=== PATIENT | female | born 1980 | race Caucasian/White ===

== ENCOUNTER 2016-08-10 18:09 | Inpatient (IN) | payer OTHER ==
[~2016-08-10] VITALS: Ht 152.4 cm; Wt 76.9 kg
[2016-08-10 18:39] VITALS: Ht 152.4 cm; Wt 76.9 kg
[2016-08-10] MEDS ORDERED: NPH,100I5 SQ ×2 (18:49→18:51)
[2016-08-10] MEDS ORDERED: SS SC (18:49)
[2016-08-10] MEDS ORDERED: PRENAT PO (18:51)
[2016-08-10] MEDS ORDERED: NOVO7030 SC (18:51)
[2016-08-10] MEDS ORDERED: INSULIN REGULAR, HUMAN 100 UNIT/1 ML 3ML VIAL SC SCH (19:00)
--- NOTE | 2016-08-10 20:09 | RADRPT ---
PROCEDURE: US biophysical profile. CLINICAL INDICATION: Decreased motion. TECHNIQUE: Multiple sonographic images of the uterus were obtained. The images were revi ewed on a PACS workstation. COMPARISON: No prior studies are available for comparison. FINDINGS: There is a single live intrauterine gestation. heart rate is 131 beats per minute. The position is cephalic. The placenta is posterior grade II with no abruption or previa. The MATT is 22.8 cm. (Normal = 5-20 cm.) Breathing Movement: 2 Gross Body Movement: 2 Tone: 2 Qualitative Amniotic Fluid Volume: 2 TOTAL: 8 IMPRESSION: 1. The biophysical score is 8/8. 2. Polyhydramnios with amniotic fluid index measuring 22.8 cm. RPTAT: QQ .Rajeev Verde MD, Date Time Electronically viewed and signed by .Rajeev Verde MD, on 08/10/2016 20:09 .R/
[2016-08-10] MEDS ORDERED: LACTATED RINGER'S 1,000 ML IV SCH ×2 (20:32→21:15)
[2016-08-10] MEDS ORDERED: NPH, HUMAN INSULIN ISOPHANE 3ML VIAL SC SCH (21:00)
[2016-08-10] MEDS ORDERED: CARBOPROST 250 MCG INJ IM PRN (21:30)
[2016-08-10] MEDS ORDERED: OXYTOCIN 30 UNITS/LR 500 ML IV PRN (21:30)
[2016-08-10] MEDS ORDERED: METHYLERGONOVINE 0.2 MG INJ IM PRN (21:30)
[2016-08-10] MEDS ORDERED: CEFAZOLIN 2 GM/50 ML (PMX) 50 ML IV SCH (21:30)
[2016-08-10] MEDS ORDERED: MISOPROSTOL 200 MCG TAB PR PRN (21:30)
[2016-08-10] MEDS ORDERED: OXYTOCIN 30 UNITS/LR 500 ML IV SCH (21:30)
[2016-08-10 21:57] LABS: ADD SCAN DIFF NO
[2016-08-10 22:00] LABS: BASOPHILS % 0.4 % (0.0-2.0); EOSINOPHILS # 0.1 10^3/ul (0.0-0.5); EOSINOPHILS % 0.8 % (0.0-7.0); HEMATOCRIT 36.8 % (37.0-47.0); HEMOGLOBIN 12.6 g/dl (12.0-16.0); LYMPHOCYTES # 1.7 10^3/ul (0.8-2.9); LYMPHOCYTES % 18.5 % (15.0-51.0); MEAN CORPUSCULAR HEMOGLOBIN 31.1 pg (29.0-33.0); MEAN CORPUSCULAR HGB CONC 34.2 g/dl (32.0-37.0); MEAN CORPUSCULAR VOLUME 90.9 fl (82.0-101.0); MEAN PLATELET VOLUME 11.7 fl (7.4-10.4); MONOCYTE # 0.4 10^3/ul (0.3-0.9); MONOCYTES % 4.5 % (0.0-11.0); NEUTROPHIL # 6.8 10^3/ul (1.6-7.5); PLATELET COUNT 166 10^3/UL (140-415); RED BLOOD COUNT 4.05 10^6/ul (4.20-5.40); RED CELL DISTRIBUTION WIDTH 13.7 % (11.5-14.5); WHITE BLOOD COUNT 9.1 10^3/ul (4.8-10.8)
[2016-08-10 22:12] LABS: INR 0.98
[2016-08-10 22:13] LABS: PARTIAL THROMBOPLASTIN TIME 25.7 Sec (25.0-35.0)
[2016-08-10 22:33] LABS: ALBUMIN 3.5 g/dl (3.3-4.9); CHLORIDE 103 mmol/L (97-110); SODIUM 139 mmol/L (135-144)
[2016-08-10 22:34] LABS: POTASSIUM 3.9 mmol/L (3.5-5.1)
[2016-08-10 22:36] LABS: ALANINE AMINOTRANSFERASE 22 IU/L (13-69); ALBUMIN/GLOBULIN RATIO 1.12; ALKALINE PHOSPHATASE 106 IU/L (42-121); ANION GAP 19 (8-16); ASPARTATE AMINO TRANSFERASE 27 IU/L (15-46); BILIRUBIN,INDIRECT 0.4 mg/dl (0-1.1); BILIRUBIN,TOTAL 0.4 mg/dl (0.2-1.3); BLOOD UREA NITROGEN 12 mg/dl (7-20); CARBON DIOXIDE 21 mmol/L (21-31); CREATININE 0.52 mg/dl (0.44-1.00); GLUCOSE 104 mg/dl (70-220); TOTAL PROTEIN 6.6 g/dl (6.1-8.1)
[2016-08-10 22:37] LABS: CALCIUM 9.5 mg/dl (8.4-10.2)
--- NOTE | 2016-08-10 23:01 | TRIAGE ---
OB Triage Datetime Report Generated by CPN: 08/10/2016 23:00 Datetime: 08/10/2016 22:00 Stage of : OB Triage Labor Evaluation Frequency: IRREGULAR Monitor Mode: External Duration (sec)2399: 60 Quality: Mild Pattern: Normal: <= 5 Contractions in 10 Minutes Resting Tone [place]: Relaxed Heart Rate FHR Baseline Rate: 145 Monitor Mode: External US FHR Baseline Changes: No Baseline Change Variability: Moderate 6-25 bpm Accelerations: 15X15 Decelerations: None Category: Category I Datetime: 08/10/2016 21:24 Vaginal Exam Membrane Status: Intact Datetime: 08/10/2016 21:00 Labor Evaluation Frequency: 1-4 Monitor Mode: External Duration (sec)2399: 60-120 Quality: Mild Pattern: Normal: <= 5 Contractions in 10 Minutes Resting Tone [place]: Relaxed Heart Rate FHR Baseline Rate: 135 Monitor Mode: External US FHR Baseline Changes: No Baseline Change Variability: Moderate 6-25 bpm Accelerations: 15X15 Decelerations: None Category: Category I Datetime: 08/10/2016 20:25 Stage of : OB Triage Datetime: 08/10/2016 20:00 Labor Evaluation Frequency: 2-3 Monitor Mode: External Duration (sec)2399: 50-120 Quality: Mild Pattern: Normal: <= 5 Contractions in 10 Minutes Resting Tone [place]: Relaxed Heart Rate FHR Baseline Rate: 125 Monitor Mode: External US FHR Baseline Changes: No Baseline Change Variability: Moderate 6-25 bpm Accelerations: 10X10 Decelerations: None Category: Category II Datetime: 08/10/2016 19:20 Bedside Blood Glucose: 96 Datetime: 08/10/2016 19:17 Assessment Type: Triage Maternal Assessment Level of Consciousness: Fully Conscious DTR's/Clonus: DTRs 2+; No Clonus Headache: Denies Blurred Vision: No Respiratory Effort: Unlabored; Regular Rhythm; Equal Expansion Breath Sounds, Left: Clear and Equal Breath Sounds, Right: Clear and Equal Nausea/Vomiting: Denies RUQ Epigastric Pain: Denies Facial Edema: None Fall Risk Assessment History of Falling: (0) No Secondary Diagnosis: (0) No Ambulatory Aid: (0) Bedrest/Nurse Assist IV Therapy: (0) No Gait: (0) Normal/Bedrest/Immobile Mental Status: (0) Oriented to Own Ability Fall Score: 0 Fall Risk Score Definition: No Risk: No action required Datetime: 08/10/2016 18:41 Stage of : OB Triage Datetime: 08/10/2016 18:32 Stage of : OB Triage Assessment Type: Triage EGA: 35.6 Maternal Assessment Level of Consciousness: Fully Conscious DTR's/Clonus: DTRs 2+; No Clonus Headache: Denies Blurred Vision: No Respiratory Effort: Unlabored; Regular Rhythm; Equal Expansion Breath Sounds, Left: Clear and Equal Breath Sounds, Right: Clear and Equal Nausea/Vomiting: Denies RUQ Epigastric Pain: Denies Facial Edema: None Temperature Route: Axillary Fall Risk Assessment History of Falling: (0) No Secondary Diagnosis: (0) No Ambulatory Aid: (0) Bedrest/Nurse Assist IV Therapy: (0) No Gait: (0) Normal/Bedrest/Immobile Mental Status: (0) Oriented to Own Ability Fall Score: 0 Fall Risk Score Definition: No Risk: No action required Labor Evaluation Frequency: 0 Monitor Mode: External Resting Tone [place]: Relaxed Heart Rate FHR Baseline Rate: 135 Monitor Mode: External US Variability: Moderate 6-25 bpm Decelerations: None Category: Category I Pain Assessment Pain Scale: 0 Pain Presence: None/Denies Pain Type: N/A Pain Goal: 3 Pain Relief Measures: Comfort Measures Datetime: 08/10/2016 18:22 Time of Arrival: 08/10/2016 18:07 Arrived By: Ambulatory Arrived From: Dr. Grove Chief Complaint: SENT FROM PERINATOLOGY IN [facility] PROLONGED DECEL LASTING 3 MIN. SENT FOR PROLONGED MONITORING Movement: Present Contractions: Denies/Absent Rupture of Membranes: Denies Vaginal Bleeding: None Vaginal Discharge: Denies Recent Sexual Intercouse: Denies Abdominal Trauma: Not Applicable Patient Complaints: None Time Provider Notified: 08/10/2016 18:15 Provider Notified: LEONARD Initial Plan: MONITOR,
--- NOTE | 2016-08-10 23:07 | TRIAGE ---
OB Triage Datetime Report Generated by CPN: 08/10/2016 23:06 Datetime: 08/10/2016 20:34 Stage of : OB Triage Datetime: 08/10/2016 18:22 Additional Patient Complaints: PT DIABETIC BEFORE PREGNACY DIET CONTRAOLLED PT ON INSULIN WHILE NE ESGNANT
--- NOTE | 2016-08-10 23:16 | TRIAGE ---
OB Triage Datetime Report Generated by CPN: 08/10/2016 23:15 Datetime: 08/10/2016 23:00 Frequency: IRREGULAR Monitor Mode: External Duration (sec)2399: 60 Quality: Mild Pattern: Normal: <= 5 Contractions in 10 Minutes Resting Tone [place]: Relaxed Interventions: Side to Side FHR Baseline Rate: 145 Monitor Mode: External US FHR Baseline Changes: No Baseline Change Variability: Moderate 6-25 bpm Accelerations: 15X15 Decelerations: Early (Annotations: DOWN TO 120 FROM 145 AND RIGHT BACK UP) Category: Category I
[2016-08-11 00:54] LABS: ADD UMIC YES; URINE BILIRUBIN (Dip) NEGATIVE (NEGATIVE); URINE BLOOD (Dip) TRACE (NEGATIVE); URINE COLOR LT. YELLOW (YELLOW); URINE GLUCOSE (Dip) NEGATIVE (NEGATIVE); URINE KETONES (Dip) TRACE (NEGATIVE); URINE LEUKOCYTE ESTERASE (Dip) 1+ (NEGATIVE); URINE NITRITE (Dip) NEGATIVE (NEGATIVE); URINE TOTAL PROTEIN (Dip) NEGATIVE (NEGATIVE); URINE UROBILINOGEN (Dip) 0.2 E.U./dL (0.1-1.0)
--- NOTE | 2016-08-11 01:21 | HP ---
Date/Time of Note Date/Time of Note DATE: 08/11/16 TIME: 01:08 OB - History Hx of Present Free Text/Dictation 35 Year-old with DM on insulin, polyhydramnios and SIUP at 35 6/[address] Archer office for prolonged deceleration during today's NST. She states good movement. She denies nausea, vomiting, shortness of breath, chest pain, and abdominal pain between contractions, headache, visual changes, vaginal bleeding or LOF. Last Menstrual Period: Dec 03, 2015 Estimated Due Date: Sep 08, 2016 : 2 Para: 1 Spontaneous : 0 Therapeutic : 0 Care: Good Care Ultrasounds: Normal mid trimester US Obstetrical Complications: Other (DM on insulin, polyhydramnios) Past Family/Social History * Past Medical, Surgical, Family and Obstetric Histories reviewed from chart. Blood Type: O+ Rubella: immune RPR/VDRL: Negative GBS Status: Unknown HBsAG: Negative OB Admission Exam Physical Exam HEENT: WNL Heart: Rhythm Normal Lungs: Clear Abdomen: WNL Extremities: Normal Reflexes: Normal Membranes: Intact Heart Rate: 120's Accelerations: No Accelerations Decelerations: No Decelerations Varibility: Minimum Contractions on Admission: 6-10 Minutes Apart Intensity: Mild Last 72 hourBlood Glucose Bedside Glucose - 72 Hours Test 08/10/16 19:20 08/10/16 22:55 08/11/16 00:32 Bedside Glucose 96mg/dL (70-220) 127mg/dL (70-220) 104mg/dL (70-220) Last 72 hours Lab Results CBC & BMP 08/10/16 21:13 Liver Function Test 08/10/16 21:13 Alanine Aminotransferase (ALT/SGPT) 22 Albumin 3.5 Alkaline Phosphatase 106 Aspartate Amino Transf (AST/SGOT) 27 Direct Bilirubin 0.00 Total Protein 6.6 OB Assessment/Plan Other plan: 35 Year-old with DM on insulin, polyhydramnios and SIUP at 35 6/7 weeks with prolonged deceleration during today's NST referred for further evaluation. Initially in triage she had minimal variability with no acceleration. She was admitted for close observation. She has BPP of 8/8, however due to polyhydramnios is difficult tp precisely interpret the AF in BPP. - FHR: Category II - Continious EFM, toco - CBC, blood type and screen - NPO from Midnight - Check FBG every 4 hrs - Continue same dose of insulin - Please see the orders - Reevaluate tomorrow morning - Follow by her primary Ob- dr. Archer Admission, procedures, expectations, risks and possible complications have been discussed in detail with the patient. She expressed understanding. All questions answered Addendum: After receiving IVF, FHR: Category II, follow closely until am BLOSSOM FISCHER Aug 11, 2016 01:18
[2016-08-11 02:05] LABS: BACTERIA,URINE MODERATE; SQUAMOUS EPITHELIAL CELL,UR MODERATE; URINE RBCS 0-2 /HPF (0)
[2016-08-11] MEDS ORDERED: LACTATED RINGER'S 1,000 ML IV SCH ×2 (04:00→21:55)
[2016-08-11] MEDS ORDERED: GLUCOSE GEL 15 GRAM TUBE PO PRN ×2 (07:00)
[2016-08-11] MEDS ORDERED: GLUCOSE GEL 15 GRAM TUBE BUCCAL PRN (07:00)
[2016-08-11] MEDS ORDERED: DEXTROSE 50% 50 ML SYRINGE IV PRN ×2 (07:00)
[2016-08-11] MEDS ORDERED: GLUCAGON 1 MG INJ IM PRN (07:00)
[2016-08-11] MEDS ORDERED: NPH, HUMAN INSULIN ISOPHANE 3ML VIAL SC SCH (07:05)
[2016-08-11] MEDS ORDERED: INSULIN REGULAR, HUMAN 100 UNIT/1 ML 3ML VIAL SC SCH ×2 (07:05→17:05)
[2016-08-11] MEDS ORDERED: morphine SULFATE/PF (10 MG/10 ML) INJ ONE (11:24)
[2016-08-11] MEDS ORDERED: FENTAnyl 50 MCG/ML VIAL ONE (11:25)
[2016-08-11] MEDS ORDERED: PHENYLephrine (100 MCG/ML) 5ML SYG ONE (11:25)
[2016-08-11] MEDS ORDERED: CEFAZOLIN 2 GM/50 ML (PMX) 50 ML IV SCH (11:30)
[2016-08-11] MEDS ORDERED: ONDANSETRON 4 MG INJ ONE (11:49)
[2016-08-11] MEDS ORDERED: DEXAMETHASONE 4 MG/ML 1 ML INJ ONE (11:49)
[2016-08-11] MEDS ORDERED: ZOLPIDEM 5 MG TAB PO PRN (13:00)
[2016-08-11] MEDS ORDERED: KETOROLAC 30 MG INJ IV PRN (13:00)
[2016-08-11] MEDS ORDERED: HYDROmorphONE 1 MG/ML SYG IV PRN ×2 (13:00)
[2016-08-11] MEDS ORDERED: ONDANSETRON 4 MG INJ IV PRN (13:00)
[2016-08-11] MEDS ORDERED: DIPHENHYDRAMINE 50 MG INJ IV PRN (13:00)
[2016-08-11] MEDS ORDERED: NALOXONE (0.4 MG/ML) INJ IV PRN (13:00)
--- NOTE | 2016-08-11 13:53 | OPR ---
Operative Report Planned Procedure Free Text/Dictation 35 wks previous c/s with late declerations, for repeat c/s and btl Procedure date Aug 11, 2016 Performed by: AUSTYN VALLE MD Assisting provider: MITCH ALCANTAR MD Anesthesia Type: spinal Procedure Description Under satisfactory spinal anesthesia, the patient was prepped and draped and placed in a supine position, tilted to the left. Pfannenstiel incision was made , carried through the subcutaneous tissue. Bleeders brought under control with electrocautery. Fascia incised to the length of the incision. Rectus muscles from the fascia, divided midline. Peritoneum exposed, entered through a transverse incision. Exploration of abdomen revealed multiple adhesions of omentum and peritoneium to the lower uterine segments which were clamped and dissected out. This was done to create a bladder flap. Transverse incision was made in the lower segment of the uterus. Amniotic sac ruptured. [clear] amniotic fluid noted. [] Nasal oropharyngeal suction was performed. The baby was handed to the team for immediate attention. The placenta was delivered manually intact. Uterine cavity was cleaned with wet sponge and drainage established. Uterus closed in 2 layers using one monocryl suture in continuous fashion. Peritoneal cavity irrigated with warm saline. The right tube was previously removed by another surgery. The left tube was tied using o plain tie twice and cut with metazmbaum scissors. Sponge, needle and instrument count reported to be correct. Abdominal peritoneum closed with one monocryl suture continuously. Rectus muscle approximated with one monocryl suture[]. Fascia closed with [one monocryl suture ], and skin closed with yany. Estimated blood loss 700[]mL. Urine bag contained [300]mL of urine Post-Procedure Findings: Live Baby [], Apgars [] and [], weight [], position [], [] presentation []cord. Complications: None Pt Condition post procedure: stable Disposition: PACU Physician Certification I, the undersigned physician, hereby certify that I have discussed the procedure described in this consent form with this patient (or the patient's legal promotions representative), including: * The risk and benefits of the procedure; * Any adverse reactions that may reasonably be expected to occur; * Any alternative efficacious methods of treatment which may be medically viable ; * The potential problems that may occur during recuperation; * Potential for blood transfusion and associated risks/benefits; and * Any research or economic interest I may have regarding this treatment. I further certify that the patient/legally responsible person was encouraged to ask question and that all questions were answered. AUSTYN VALLE MD Aug 11, 2016 13:53
--- NOTE | 2016-08-11 14:44 | DELSUM ---
Delivery Summary A-C Datetime Report Generated by CPN: 08/11/2016 14:44 DELIVERY PERSONNEL Steeler: Ghukasyan, Sue MATERNAL INFORMATION Delivery Anesthesia: Spinal Medications in Delivery: SEE ANESTHESIA RECORD Estimated Blood Loss (ml): 800 Placenta Cultured: No Maternal Complications: None LABOR SUMMARY EDC: 09/08/2016 00:00 No. Babies in Womb: 1 Attempted: No Labor Anesthesia: None LABOR INFORMATION Reason for Induction: Not Applicable Oxytocin: N/A Group B Beta Strep: Negative Group B Beta Strep: Positive Antibiotics # of Doses: 1 Antibiotics Time of Last Dose: 08/11/2016 11:50 Steroids Given: None Reason Steroids Not Administered: Not Applicable MEMBRANES Membranes Rupture Method: Artificial Rupture of Membranes: 08/11/2016 11:58 Length of Rupture (hr): 0.02 Amniotic Fluid Color: Bloody Amniotic Fluid Amount: Large Amniotic Fluid Odor: Normal STAGES OF LABOR Stage 3 hr: 0 Stage 3 min: 1 CSECTION DELIVERY Primary Indication: Repeat Elective Secondary Indication: Nonreassuring Stat CSection Urgency: Elective CSection Incidence: Repeat Labor: No Labor Elective: Elective CSection Incision: Lower Uterine Transverse Sterilization Procedure: Scarlet BABY A INFORMATION Delivery Date/Time: 08/11/2016 11:59 Method of Delivery: Born in Route : No : N/A Forceps: N/A Vacuum Extraction: N/A Shoulder Dystocia : N/A SHOULDER DYSTOCIA BABY A Delivery Date/Time: 08/11/2016 11:59 PRESENTATION/POSITION BABY A Presentation: Cephalic Cephalic Presentation: Vertex Vertex Position: Left Occipital Anterior Breech Presentation: N/A PLACENTA INFORMATION BABY A Placenta Delivery Time : 08/11/2016 12:00 Placenta Method of Delivery: Manual Removal Placenta Status: Delivered SCORES BABY A Heart Rate 1 min: >100 bpm Resp Effort 1 min: Good Cry Reflex Irritability 1 min: Cough/Sneeze/Pulls Away Muscle Tone 1 min: Some Flexion of Extrem Color 1 min: Body [place], Extremit Blue SCORE 1 MIN: 8 Heart Rate 5 min: >100 bpm Resp Effort 5 min: Good Cry Reflex Irritability 5 min: Cough/Sneeze/Pulls Away Muscle Tone 5 min: Active Motion Color 5 min: Body [place], Extremit Blue SCORE 5 MIN: 9 INFANT INFORMATION BABY A Gestational Age at Delivery: 36.0 Gestational Status: Late - 34- 36.6 Weeks Infant Outcome : Liveborn Infant Condition : Stable Sex: Female IDENTIFICATION/MEDS BABY A ID Band Number: [id number] ID Band Location: Right Leg; Left Arm Sensor Applied: Yes Sensor Number: [id number] Sensor Location : Cord Clamp Vitamin K Given : Not Given Erythromycin Given: Not Given WEIGHT/LENGTH BABY A Birthweight (gm): 2775 Weight (lb): 6 Weight (oz): 2 Length (in): 18.00 Length (cm): 45.72 CORD INFORMATION BABY A No. Cord Vessels: 3 Nuchal Cord : N/A Cord Blood Taken: Yes Suction: Mouth; Nose ASSESSMENT BABY A Complications: Other Physical Findings at Delivery: Within Normal Limits Respirations: Appears Normal Reproduction Technician/ALS Called : No Care By: Chon PARRA Transferred To: Remains with Mother
[2016-08-11 15:45] VITALS: BP 123/63; PULSE 63; RESP 17
[2016-08-11] MEDS: LACTATED RINGER'S 1,000 ML IV SCH ×2 (16:08→22:50)
[2016-08-11] MEDS ORDERED: MISOPROSTOL 200 MCG TAB PR PRN (16:30)
[2016-08-11] MEDS ORDERED: NA PHOSPHATE/BIPHOS 133 ML ENEMA PR PRN (16:30)
[2016-08-11] MEDS ORDERED: NACL 0.9% 3 ML SYG IV SCH (16:30)
[2016-08-11] MEDS ORDERED: METHYLERGONOVINE 0.2 MG INJ IM PRN (16:30)
[2016-08-11] MEDS ORDERED: LANOLIN 7 GM TUBE TOP PRN (16:30)
[2016-08-11] MEDS ORDERED: OXYTOCIN 30 UNITS/LR 500 ML IV PRN (16:30)
[2016-08-11] MEDS ORDERED: OXYCODONE/ACETAMINOPHEN (5/325) TAB PO PRN (16:30)
[2016-08-11] MEDS ORDERED: CARBOPROST 250 MCG INJ IM PRN (16:30)
[2016-08-11] MEDS ORDERED: ACETAMINOPHEN/CODEINE #3 TAB PO PRN (16:30)
[2016-08-11] MEDS: OXYTOCIN 30 UNITS/LR 500 ML IV SCH ×2 (16:33→19:02)
[2016-08-11 19:45] VITALS: BP 117/59; PULSE 68; RESP 20
[2016-08-11 23:30] VITALS: BP 102/58; PULSE 73; RESP 18
[2016-08-12 03:30] VITALS: BP 97/56; PULSE 71; RESP 19
[2016-08-12] MEDS: LACTATED RINGER'S 1,000 ML IV SCH (06:21)
[2016-08-12 08:00] VITALS: BP 101/55; PULSE 78; RESP 18
[2016-08-12 08:05] LABS: ADD SCAN DIFF NO
[2016-08-12 08:42] LABS: BASOPHILS % 0.2 % (0.0-2.0); EOSINOPHILS % 0.1 % (0.0-7.0); HEMATOCRIT 24.1 % (37.0-47.0); LYMPHOCYTES # 1.5 10^3/ul (0.8-2.9); LYMPHOCYTES % 15.7 % (15.0-51.0); MEAN CORPUSCULAR HEMOGLOBIN 30.5 pg (29.0-33.0); MEAN CORPUSCULAR HGB CONC 33.2 g/dl (32.0-37.0); MEAN PLATELET VOLUME 11.6 fl (7.4-10.4); MONOCYTE # 0.6 10^3/ul (0.3-0.9); MONOCYTES % 6.4 % (0.0-11.0); NEUTROPHIL # 7.5 10^3/ul (1.6-7.5); NEUTROPHILS % 77.2 % (39.0-77.0); PLATELET COUNT 108 10^3/UL (140-415); RED BLOOD COUNT 2.62 10^6/ul (4.20-5.40); RED CELL DISTRIBUTION WIDTH 13.8 % (11.5-14.5); WHITE BLOOD COUNT 9.8 10^3/ul (4.8-10.8)
--- NOTE | 2016-08-12 12:47 | PN ---
Date/Time of Note Date/Time of Note DATE: 08/12/16 TIME: 12:47 OB Subjective Subjective Subjective Patient reports pain well controlled with p.o. pain medication. She tolerated regular diet. Has not passed flatus yet. Baby is in NICU. Pumping. Vaginal bleeding decreased. OB Objective Objective Objective General appearance : Alert and oriented, patient is not in any acute distress. Abdomen: Soft, appropriate tenderness in the section incision. No drainage. Scant amount of old blood on the incision seen. Bowel sounds: Hypoactive Extremities: No calf tenderness, no click no edema Breast: No engorgement. No fissure and no evidence of mastitis Hematology - 72 Hrs Test 08/10/16 21:13 08/12/16 07:41 Basophils # 0.010^3/ul (0.0-0.1) 0.010^3/ul (0.0-0.1) Basophils % 0.4% (0.0-2.0) 0.2% (0.0-2.0) Eosinophils # 0.110^3/ul (0.0-0.5) 0.010^3/ul (0.0-0.5) Eosinophils % 0.8% (0.0-7.0) 0.1% (0.0-7.0) Hematocrit 36.8% (37.0-47.0) L 24.1% (37.0-47.0) #L Hemoglobin 12.6g/dl (12.0-16.0) 8.0g/dl (12.0-16.0) #L Lymphocytes # 1.710^3/ul (0.8-2.9) 1.510^3/ul (0.8-2.9) Lymphocytes % 18.5% (15.0-51.0) 15.7% (15.0-51.0) Mean Corpuscular Hemoglobin 31.1pg (29.0-33.0) 30.5pg (29.0-33.0) Mean Corpuscular Hemoglobin Concent 34.2g/dl (32.0-37.0) 33.2g/dl (32.0-37.0) Mean Corpuscular Volume 90.9fl (82.0-101.0) 92.0fl (82.0-101.0) Mean Platelet Volume 11.7fl (7.4-10.4) H 11.6fl (7.4-10.4) H Monocytes # 0.410^3/ul (0.3-0.9) 0.610^3/ul (0.3-0.9) Monocytes % 4.5% (0.0-11.0) 6.4% (0.0-11.0) Neutrophils # 6.810^3/ul (1.6-7.5) 7.510^3/ul (1.6-7.5) Neutrophils % 75.0% (39.0-77.0) 77.2% (39.0-77.0) H Nucleated Red Blood Cells # 0.010^3/ul (0.0-0.0) 0.010^3/ul (0.0-0.0) Nucleated Red Blood Cells % 0.0/100WBC (0.0-0.0) 0.0/100WBC (0.0-0.0) Platelet Count 06806^3/UL (140-415) 84472^3/UL (140-415) #L Red Blood Count 4.0510^6/ul (4.20-5.40) L 2.6210^6/ul (4.20-5.40) #L Red Cell Distribution Width 13.7% (11.5-14.5) 13.8% (11.5-14.5) White Blood Count 9.110^3/ul (4.8-10.8) 9.810^3/ul (4.8-10.8) Chemistry Test 08/10/16 19:20 08/10/16 21:13 08/10/16 22:55 08/11/16 00:32 Bedside Glucose 96mg/dL (70-220) 127mg/dL (70-220) 104mg/dL (70-220) Alanine Aminotransferase (ALT/SGPT) 22IU/L (13-69) Albumin 3.5g/dl (3.3-4.9) Albumin/Globulin Ratio 1.12 Alkaline Phosphatase 106IU/L (42-121) Anion Gap 19 (8-16) H Aspartate Amino Transf (AST/SGOT) 27IU/L (15-46) Blood Urea Nitrogen 12mg/dl (7-20) Calcium Level 9.5mg/dl (8.4-10.2) Carbon Dioxide Level 21mmol/L (21-31) Chloride Level 103mmol/L (97-110) Creatinine 0.52mg/dl (0.44-1.00) Direct Bilirubin 0.00mg/dl (0.00-0.20) Globulin 3.10g/dl (1.3-3.2) Glucose Level 104mg/dl (70-220) Indirect Bilirubin 0.4mg/dl (0-1.1) Potassium Level 3.9mmol/L (3.5-5.1) Sodium Level 139mmol/L (135-144) Total Bilirubin 0.4mg/dl (0.2-1.3) Total Protein 6.6g/dl (6.1-8.1) Test 08/11/16 04:25 08/11/16 08:18 08/11/16 14:22 08/11/16 21:12 Bedside Glucose 102mg/dL (70-220) 81mg/dL (70-220) 104mg/dL (70-220) 121mg/dL (70-220) Test 08/12/16 08:05 08/12/16 11:06 Bedside Glucose 87mg/dL (70-220) 91mg/dL (70-220) OB Assessment/Plan Other Assessment: Status post repeat section for bradycardia at 36 weeks. Baby currently in NICU due to low blood sugar Hypoactive bowel sounds No evidence of ileus Anemia, due to postop. Asymptomatic and stable. Iron twice daily after resumption of bowel function with a stool softener Doing well Patient with GDM A2, was on insulin during . Blood sugars post up within normal range. Has not been on medication prior to Plan: Expectant Management Other plan: Continue ambulation Continue routine postop care ARLET SWEENEY MD Aug 12, 2016 12:47
[2016-08-12] MEDS: IBUPROFEN 800 MG TAB PO SCH ×2 (14:00→22:00)
[2016-08-12 16:00] VITALS: BP 113/59; PULSE 82; RESP 18
[2016-08-12 20:10] VITALS: BP 116/59; RESP 20
[2016-08-13] MEDS: IBUPROFEN 800 MG TAB PO SCH ×3 (00:43→21:56)
[2016-08-13 04:25] VITALS: BP 91/52; RESP 18
[2016-08-13 08:10] VITALS: BP 103/56; PULSE 67; RESP 17
--- NOTE | 2016-08-13 10:56 | QN ---
Documentation Comment doing well vss abd soft icision c&d d/c home next am AUSTYN VALLE MD Aug 13, 2016 10:56
--- NOTE | 2016-08-13 10:57 | DS ---
Date/Time of Note Date/Time of Note DATE: 08/13/16 TIME: 10:56 Discharge Summary Admission/Discharge Info Admit Date/Time Aug 10, 2016 at 20:25 Discharge Date/Time Final Diagnosis term preg repeat c/s in labor Patient Condition: Stable Hospital Course unremarkable Home Meds Reported Medications Multivit/Min/Fol Ac/Iron/Pren* ( S*) 1 Tab Tab, 1 TAB PO DAILY, TAB 08/10/16 NPH, Human Insulin Isophane (Humulin N Kwikpen) 100 Unit/1 Ml Insuln.pen, 1 UNIT SQ, EA 08/10/16 Insulin Isophan/Regular (Humulin 70/30) 100 Units/Ml Susp, 1 UNIT SC AC BREAKFAST, EA 08/10/16 Insulin Human Regular (Novolin-R U-100) 100 Unit/Ml Soln, 1 UNITS SC AC BREAKFAST, EA 08/10/16 NPH, Human Insulin Isophane (Humulin N Kwikpen) 100 Unit/1 Ml Insuln.pen, 1 UNIT SQ, #10 EA 08/10/16 Pending Labs Laboratory Tests Test 08/12/16 11:06 08/12/16 14:52 08/12/16 21:43 08/13/16 08:42 Bedside Glucose 91mg/dL (70-220) 151mg/dL (70-220) 151mg/dL (70-220) 105mg/dL (70-220) AUSTYN VALLE MD Aug 13, 2016 10:57
--- NOTE | 2016-08-13 10:58 | PD.PPDC ---
REINFORCING STEEL WORKER Discharge Instruction Condition Patient Condition: Stable Diet Diet: Resume Regular Diet Activity/Restrictions Activity: Normal Activity May Shower Restrictions: No Exercising No Lifting No Driving No Sexual Activity Nothing in the Vagina No [place] No Tampons, douche Wound/Drain Care Instructions Wound/Drain Care Instructions: Wash with soap and water Keep clean and dry Follow-up Follow-up with Physician: 3, Week/Weeks Return to clinic for CONVEYOR TENDER Instructions: Fever greater than 101 Chills Worsening abdominal pain Excessive Vaginal Bleeding More than 2 pads per hour Unable to tolerate diet OB Instructions: Breast Tenderness Depression Blurried Vision Headache Surgical Instructions: Incisional Drainage Incisional Redness AUSTYN VALLE MD Aug 13, 2016 10:57
[2016-08-13] MEDS: SENNA TAB PO SCH (13:41)
[2016-08-13] MEDS: MAGNESIUM HYDROXIDE 30ML CUP PO SCH (13:41)
[2016-08-13 15:45] VITALS: BP 117/71; PULSE 81; RESP 16
[2016-08-13 19:30] VITALS: BP 112/66; PULSE 80; RESP 18
[2016-08-14] MEDS: MAGNESIUM HYDROXIDE 30ML CUP PO SCH ×2 (00:37→10:07)
[2016-08-14] MEDS: SENNA TAB PO SCH ×2 (00:37→10:07)
[2016-08-14 03:45] VITALS: BP 115/70; PULSE 66; RESP 18
[2016-08-14] MEDS: IBUPROFEN 800 MG TAB PO SCH ×2 (06:00→14:04)
[2016-08-14 08:00] VITALS: BP 134/62; PULSE 69; RESP 19
[2016-08-14] MEDS ORDERED: MEASLES,MUMPS,RUBELLA VACCINE INJ SC* ONE (09:00)
[2016-08-14] MEDS ORDERED: DIPHTH/TET/ACEL PERTUSS (ADULT) 0.5 ML VIAL IM* ONE (09:00)
== END 2016-08-14 17:15 | disposition home or self-care (01) | DRG 765 ==
LOC: L-D 18:09 → OBT 18:09 → L-D 20:25 → OBG 08-11 02:45 → L-D 08-11 10:53 → PP1 08-11 15:35
PROVIDERS: ADMIT Obstetrics & Gynecology; ATTEND Obstetrics & Gynecology
PROC: 10D00Z1 Extraction of Products of Conception, Low, Open Approach (ICD-10-PCS; principal; 2016-08-11 12:00)
DX: O34.211 Maternal care for low transverse scar from previous cesarean delivery (principal); O60.14X0 Preterm labor third trimester with preterm delivery third trimester, not applicable or unspecified; O24.12 Pre-existing type 2 diabetes mellitus, in childbirth; E11.9 Type 2 diabetes mellitus without complications; O40.3XX0 Polyhydramnios, third trimester, not applicable or unspecified; Z79.4 Long term (current) use of insulin; Z3A.35 35 weeks gestation of pregnancy; Z37.0 Single live birth
CPT/HCPCS: 36415; 76818; 80053; 81001; 81003; 82962; 85025; 85610; 85730; 86592; 86703; 86850; 86900; 86901; 86920; 87086; 87340; 88302; 90715; 99464; G0463; J0690; J1100; J1815; J1885; J2274; J2370; J2405; J2590; J3010; J7120

== ENCOUNTER 2016-09-11 13:05 | Emergency (ER) | payer OTHER ==
[~2016-09-11] VITALS: Ht 154.9 cm; Wt 70.0 kg
[~2016-09-11 13:05] MED LIST: NOVO7030 SC; NPH,100I5 SQ; PRENAT PO; SS SC
[2016-09-11 13:12] VITALS: Ht 154.9 cm; Wt 70.0 kg
--- NOTE | 2016-09-11 13:17 | ERD ---
ER Documentation Chief Complaint Date/Time DATE: 09/11/16 TIME: 13:16 Chief Complaint pt here for " scar looks red" HPI This is a 35-year-old female who presents to the emergency room for evaluation of her wound. This patient states that she had a done on August 11 at this hospital. She states that over the past 5 days she has noticed a small bump in the portion of her incision site. She denies any fevers, chills , nausea or vomiting. She is passing gas normally, no blood in the stool. And came to the emergency room today for evaluation ROS All systems reviewed and are negative except as per history of present illness. Medications Home Meds Reported Medications Multivit/Min/Fol Ac/Iron/Pren* ( S*) 1 Tab Tab, 1 TAB PO DAILY, TAB 08/10/16 NPH, Human Insulin Isophane (Humulin N Kwikpen) 100 Unit/1 Ml Insuln.pen, 1 UNIT SQ, EA 08/10/16 Insulin Isophan/Regular (Humulin 70/30) 100 Units/Ml Susp, 1 UNIT SC AC BREAKFAST, EA 08/10/16 Insulin Human Regular (Novolin-R U-100) 100 Unit/Ml Soln, 1 UNITS SC AC BREAKFAST, EA 08/10/16 NPH, Human Insulin Isophane (Humulin N Kwikpen) 100 Unit/1 Ml Insuln.pen, 1 UNIT SQ, #10 EA 08/10/16 Allergies Allergies: Coded Allergies: No Known Allergy (Unverified , 08/10/16) Physical Exam Vitals Vital Signs Date Time Temp Pulse Resp B/P Pulse Ox O2 Delivery O2 Flow Rate FiO2 09/11/16 13:12 98.3 68 18 122/64 98 Physical Exam Const: No acute distress Head: Atraumatic Eyes: Normal Conjunctiva ENT: Normal External Ears, Nose and Mouth. Neck: Full range of motion..~ No meningismus. Resp: Clear to auscultation bilaterally Cardio: Regular rate and rhythm, no murmurs Abd: Soft, non tender, non distended. Normal bowel sounds Skin: Horizontal incision scar with 1 cm x 0.5 cm area of fluctuance on the left lateral portion. No area of dehiscence. Small hematoma noted., No purulent drainage no petechiae or rashes Back: No midline or flank tenderness Ext: No cyanosis, or edema Neur: Awake and alert Psych: Normal Mood and Affect Results 24 hrs Current Medications Medications (Trade) Dose Ordered Sig/Sergio Route PRN Reason Start Time Stop Time Status Last Admin Dose Admin Trimethoprim/ Sulfamethoxazole (Bactrim (Ds)) 1 tab ONCE ONCE PO 09/11/16 13:30 09/11/16 13:31 Cephalexin (Keflex) 500 mg ONCE ONCE PO 09/11/16 13:30 09/11/16 13:31 Procedures/MDM This 35-year-old female presented to the emergency room for evaluation of her C- section wound. When I evaluated this patient she did have a small hematoma on the lateral aspect of the incision. There is no dehiscence. There is no purulent drainage. Mild fluctuance was also noted just under the subcutaneous layer the skin. I did give this patient Bactrim and Keflex. She will be discharged at this time with a prescription for Bactrim and Keflex with instructions to follow-up in the emergency room on September 14 for a wound reevaluation. She verbalized understanding. She has no signs of sepsis at this time and is okay with her plan of care. Advised to return to the ER immediately if she had any dehiscence of the wound or drainage from the site. Departure Diagnosis: Primary Impression: section wound seroma, Additional Impression: Encounter for wound re-check Condition: Stable FRANKO GODOY DO Sep 11, 2016 13:17
[2016-09-11] MEDS ORDERED: BACTDS PO (13:22)
[2016-09-11] MEDS ORDERED: CEPH-443 PO (13:22)
[2016-09-11] MEDS ORDERED: CEPHALEXIN 500 MG CAP PO ONE (13:30)
[2016-09-11] MEDS ORDERED: TRIMETHOPRIM/SULFAMETHOX (DS) TAB PO ONE (13:30)
== END 2016-09-11 14:04 | disposition home or self-care (01) ==
LOC: FTE 13:05
DX: O90.2 Hematoma of obstetric wound (principal); Z79.4 Long term (current) use of insulin
CPT/HCPCS: Z7502; Z7610; 99284

== ENCOUNTER 2016-09-17 07:51 | Emergency (ER) | payer OTHER ==
[~2016-09-17] VITALS: Ht 162.6 cm; Wt 67.8 kg
[~2016-09-17 07:51] MED LIST changes: +BACTDS PO; +CEPH-443 PO
[2016-09-17 07:53] VITALS: Ht 162.6 cm; Wt 67.8 kg
--- NOTE | 2016-09-17 08:41 | ERD ---
ER Documentation Chief Complaint Date/Time DATE: 09/17/16 TIME: 08:36 Chief Complaint 1 1/2 mos ago, has discharge from site, treated w/ antbiotics HPI This is a 35-year-old female who presents to the emergency department today for a wound check. Patient had a on August 11 and was seen here on September 11 for evaluation of her wound at that time. States that she has been taking her antibiotics as prescribed and states that the wound is now opening up. Denies any fevers or chills. ROS All systems reviewed and are negative except as per history of present illness. Medications Home Meds Active Scripts Cephalexin* (Keflex*) 500 Mg Capsule, 500 MG PO QID for 7 Days, CAP Prov:FRANKO GODOY DO 09/11/16 Sulfamethoxazole-Trimethoprim* (Bactrim* DS) 800-160 Mg Tab, 1 TAB PO BID for 10 Days, TAB Prov:FRANKO GODOY DO 09/11/16 Reported Medications Multivit/Min/Fol Ac/Iron/Pren* ( S*) 1 Tab Tab, 1 TAB PO DAILY, TAB 08/10/16 NPH, Human Insulin Isophane (Humulin N Kwikpen) 100 Unit/1 Ml Insuln.pen, 1 UNIT SQ, EA 08/10/16 Insulin Isophan/Regular (Humulin 70/30) 100 Units/Ml Susp, 1 UNIT SC AC BREAKFAST, EA 08/10/16 Insulin Human Regular (Novolin-R U-100) 100 Unit/Ml Soln, 1 UNITS SC AC BREAKFAST, EA 08/10/16 NPH, Human Insulin Isophane (Humulin N Kwikpen) 100 Unit/1 Ml Insuln.pen, 1 UNIT SQ, #10 EA 08/10/16 Allergies Allergies: Coded Allergies: No Known Allergy (Unverified , 09/17/16) PMhx/Soc Medical and Surgical Hx: pt denies Medical Hx History of Surgery: Yes ( six weeks ago) Hx Alcohol Use: No Hx Substance Use: No Hx Tobacco Use: No Physical Exam Vitals Vital Signs Date Time Temp Pulse Resp B/P Pulse Ox O2 Delivery O2 Flow Rate FiO2 09/17/16 07:53 97.8 60 18 126/69 99 Physical Exam Const: No acute distress Head: Atraumatic Eyes: Normal Conjunctiva ENT: Normal External Ears, Nose and Mouth. Neck: Full range of motion..~ No meningismus. Resp: Clear to auscultation bilaterally Cardio: Regular rate and rhythm, no murmurs Abd: Soft, non tender, non distended. Normal bowel sounds Skin: Horizontal incisional scar with 3 cm area of fluctuance on the left lateral portion. There is evidence of some wound dehiscence and it peers to be small hematoma noted as well as granulamatous tissue Neur: Awake and alert Psych: Normal Mood and Affect Procedures/MDM This a 35-year-old female who presents the emergency department today for a wound check. Patient had a on August [address] Archer. She was seen here in the emergency department on September 11 for evaluation of her wound. At that time patient did have a small hematoma in the lateral aspect of the incision. There was no wound dehiscence at that time and no purulent drainage. There was mild fluctuance noted. Patient was placed on Bactrim and Keflex and instructed to return in a couple of days for a wound check. Patient returned one week later for evaluation again. Area appears to be larger at this time with approximately 3 cm area of fluctuance on the left lateral portion. There also appears to be some opening of the wound with some granular Gianni tissue evidence. Patient is afebrile and otherwise well-appearing. At this time I have low suspicion for sepsis, deep space tracking infection. I did discuss the patient with Dr. Chicas and he recommended that I place a call to the [facility]. I spoke to Dr. Payan who asked me to place a call to Dr. Archer directly. I did speak to Dr. Archer in regards to the patient and he recommended opening up the wound and doing a wet-to-dry packing. I have explained to Dr. Archer that I would much rather prefer that he sees the patient in clinic and perform the procedure himself given that this patient is postop . Dr. Archer has agreed to see the patient in his office today at noon. I have instructed the patient to follow-up with him today and see him in his clinic today. Patient understood. Departure Diagnosis: Primary Impression: Encounter for wound re-check Condition: Fair Patient Instructions: Wound Care Referrals: Dr. Archer Additional Instructions: Call your [facility] TODAY for an appointment today. See Dr. Archer in his [facility] office today at noon. NIKOLE POLLARD PA-C Sep 17, 2016 08:41
== END 2016-09-17 08:51 | disposition home or self-care (01) ==
LOC: FTE 07:51
DX: Z48.01 Encounter for change or removal of surgical wound dressing (principal); Z79.4 Long term (current) use of insulin
CPT/HCPCS: 99281